=== PATIENT | female | born 1970 | race Caucasian/White ===

== ENCOUNTER 2021-04-06 15:01 | Emergency (ER) | payer MEDICAID ==
[~2021-04-06] VITALS: Ht 170.2 cm; Wt 150.0 kg
[2021-04-06 15:42] VITALS: BP 128/91
[2021-04-06] MEDS ORDERED: TOBR5DRO2 LEFTEYE (15:47)
== END 2021-04-06 15:57 | disposition home or self-care (01) ==
LOC: ER 15:01
DX: H01.00A Unspecified blepharitis right eye, upper and lower eyelids (principal); H02.845 Edema of left lower eyelid; Z79.2 Long term (current) use of antibiotics
CPT/HCPCS: 99283